=== PATIENT | male | born 1995 | race Caucasian/White ===

== ENCOUNTER 2017-12-18 15:26 | Emergency (ER) | payer OTHER ==
[2017-12-18 15:44] VITALS: BP 128/67; PULSE 68; TEMP 98.1; BMI 31.1
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
[2017-12-18] MEDS ORDERED: SODIUM CHLORIDE 1,000 ML IV STA (17:29)
[2017-12-18] MEDS ORDERED: ACETAMINOPHEN 1000 MG/100 ML VIAL (NON FORMULARY) IVPB ONE (17:29)
[2017-12-18] MEDS ORDERED: ACETAMINOPHEN INJECTION 100 ML IVPB ONE (17:46)
[2017-12-18 17:50] LABS: BASO % 0.6 % (0-2.0); EOS % 0.8 % (0-4.5); HEMOGLOBIN 14.9 GM/dL (11.7-16.9); LYMPH % 30.3 % (8-40); MCH 27.8 pg (25.7-33.7); MCHC 33.9 g/dl (32.0-35.9); MEAN CELL VOLUME 82.2 fl (80-96); MEAN PLT VOLUME 8.7 fl (7.5-11.1); NEUT % 61.3 % (42.8-82.8); PLATELET COUNT 258 K/MM3 (134-434); RBC 5.35 M/mm3 (4.00-5.60); RDW 14.1 % (11.9-15.9); WHITE BLOOD COUNT 9.7 K/mm3 (4.0-10.0)
[2017-12-18 18:03] LABS: INR 1.07 (0.82-1.09); PROTHROMBIN TIME (PATIENT) 12.1 SEC (9.98-11.88)
[2017-12-18 18:06] LABS: ACTIVATED PTT 27.4 SECONDS (26.9-34.4)
[2017-12-18 18:14] LABS: ALBUMIN 4.5 g/dl (3.4-5.0); ALK PHOS 60 U/L (45-117); ANION GAP 8 (8-16); BILIRUBIN,TOTAL 0.5 mg/dL (0.2-1.0); BLOOD UREA NITROGEN 15 mg/dL (7-18); CALCIUM 9.1 mg/dL (8.5-10.1); CHLORIDE 105 mmol/L (98-107); CO2 24 mmol/L (21-32); CREATININE 1.2 mg/dL (0.7-1.3); GLUCOSE,RANDOM 88 mg/dL (74-106); POTASSIUM 4.2 mmol/L (3.5-5.1); SGOT/AST 33 U/L (15-37); SGPT/ALT 41 U/L (12-78); SODIUM 137 mmol/L (136-145); TOT PROT 7.8 g/dl (6.4-8.2)
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
[2017-12-18] MEDS ORDERED: morphine SULFATE 4 MG/ML VIAL ONE (20:19)
[2017-12-18] MEDS ORDERED: morphine CARPU-JECT 4 MG/1 ML DISP.SYRIN IVPUSH ONE (20:44)
--- NOTE | 2017-12-19 21:35 | EKG ---
Test Reason : Blood Pressure : / mmHG Vent. Rate : 059 BPM Atrial Rate : 059 BPM P-R Int : 136 ms QRS Dur : 082 ms QT Int : 382 ms P-R-T Axes : 051 078 052 degrees QTc Int : 378 ms POOR DATA QUALITY, INTERPRETATION MAY BE ADVERSELY AFFECTED SINUS BRADYCARDIA WITH SINUS ARRHYTHMIA OTHERWISE NORMAL ECG NO PREVIOUS ECGS AVAILABLE Confirmed by APRIL BUCK MD ([id number]) on 12/19/2017 9:34:54 PM Referred By: Confirmed By:APRIL BUCK MD
== END 2017-12-18 22:08 | disposition home or self-care (01) ==
LOC: JER 15:26
PROC: 3E033NZ Introduction of Analgesics, Hypnotics, Sedatives into Peripheral Vein, Percutaneous Approach (ICD-10-PCS; principal; 2017-12-18)
PROC: 3E033NZ Introduction of Analgesics, Hypnotics, Sedatives into Peripheral Vein, Percutaneous Approach (ICD-10-PCS; 2017-12-18)
DX: S09.8XXA Other specified injuries of head, initial encounter (principal); S20.212A Contusion of left front wall of thorax, initial encounter; S01.01XA Laceration without foreign body of scalp, initial encounter; M24.811 Other specific joint derangements of right shoulder, not elsewhere classified; V48.5XXA Car driver injured in noncollision transport accident in traffic accident, initial encounter; W22.11XA Striking against or struck by driver side automobile airbag, initial encounter; Y92.414 Local residential or business street as the place of occurrence of the external cause; Y93.89 Activity, other specified; Y99.8 Other external cause status
CPT/HCPCS: 36415; 70450-TC; 71275-TC; 72070-TC-FY; 72100-TC-FY; 72125-TC; 73030-TC-RT-FY; 74177-TC; 80053; 82550; 82553; 84484; 85025; 85610; 85730; 86850; 86900; 86901; 93005; 93010; 99283-25; J0131; J7030